=== PATIENT | female | born 2000 | race Caucasian/White ===

== ENCOUNTER → 2019-08-12 13:00 | Outpatient (BNVA) | payer MEDICAID, SELFPAY | PROVIDERS: Family Provider Nurse Practitioner Family; PCP Nurse Practitioner Family; Referring Provider Obstetrics & Gynecology; Visit Provider Obstetrics & Gynecology | DX: Z32.01 Encounter for pregnancy test, result positive (principal) | CPT/HCPCS: 81025 ==

== ENCOUNTER → 2019-08-18 13:30 | Outpatient (BNVA) | payer MEDICAID, SELFPAY | PROVIDERS: Family Provider Nurse Practitioner Family; PCP Nurse Practitioner Family; Visit Provider Nurse Practitioner Women's Health | DX: O09.891 Supervision of other high risk pregnancies, first trimester (principal); O99.331 Smoking (tobacco) complicating pregnancy, first trimester | CPT/HCPCS: 81000 ==

== ENCOUNTER → 2021-05-09 11:53 | Outpatient (BNVA) | payer MEDICAID, SELFPAY | PROVIDERS: Family Provider Nurse Practitioner Family; PCP Nurse Practitioner Family; Visit Provider Nurse Practitioner Family | DX: S69.90XA Unspecified injury of unspecified wrist, hand and finger(s), initial encounter (principal); S62.308A Unspecified fracture of other metacarpal bone, initial encounter for closed fracture; S62.316A Displaced fracture of base of fifth metacarpal bone, right hand, initial encounter for closed fracture; X58.XXXA Exposure to other specified factors, initial encounter | CPT/HCPCS: 73130 ==

== ENCOUNTER 2021-06-13 05:32 | Emergency (ER) | payer MEDICAID, SELFPAY ==
[2021-06-13 05:35] VITALS: BP 108/64; PULSE 85; RESP 20; TEMP 37.2; O2SAT 100; BMI 19.5
[2021-06-13 06:00] LABS: Basophils # 0.1 10^3/uL (0.0-0.1); Basophils % 0.4 %; Eosinophils % 0.2 %; Hematocrit 38.8 % (37.0-47.0); Hemoglobin 13.1 g/dL (11.5-15.3); Lymphocytes # 1.5 10^3/uL (0.8-4.8); Lymphocytes % 12.5 %; Mean Corpuscular HGB Conc 33.8 g/dL (30.0-36.0); Mean Corpuscular Hemoglobin 29.4 pg (28.0-34.0); Mean Corpuscular Volume 87.2 fl (81-99); Mean Platelet Volume 9.7 fL (7.4-10.4); Monocytes # 0.3 10^3/uL (0.2-0.9); Monocytes % 2.5 %; Neutrophils # 10.03 10^3/uL (1.8-7.7); Nucleated Red Blood Cells % 0 %; Platelet Count 412 10^3/cmm (130-400); Red Blood Count 4.45 10^6/uL (4.1-5.3); Red Cell Distribution Width 13.6 % (12.1-15.1); White Blood Count 11.9 10^3/uL (4.0-10.0)
--- NOTE | 2021-06-13 06:04 | XRR_ITS ---
PROCEDURE INFORMATION: Exam: XR Chest Exam date and time: 06/13/2021 6:04 AM Age: 21 years old Clinical indication: Dyspnea; Patient HX: SOB today; Additional info: Dyspnea/cough TECHNIQUE: Imaging protocol: XR of the chest. Views: 1 view. COMPARISON: No relevant prior studies available. FINDINGS: Lungs: No consolidation. Pleural spaces: Unremarkable. No pleural effusion. No pneumothorax. Heart/Mediastinum: No cardiomegaly. Bones/joints: No acute fracture. XR/XR chest 1V portable [id number] IMPRESSION: No acute findings. Radiation Dose CTDIVOL = (mGy): DLP = (mGy-cm)
--- NOTE | 2021-06-13 06:09 | ED_ITS ---
HPI - Abdominal Pain General: Chief Complaint: Abdominal Pain Stated Complaint: ABD PAIN Time Seen by Provider: 06/13/21 05:46 History of Present Illness: HPI narrative: 21-year-old female presents emergency room with complaint of abdominal pain nausea and vomiting. She states she has had this for last 3 days she was seen in [facility] exacerbated with the weight and left. She brought in today by EMS she is moaning loudly complaining of nonspecific abdominal pain does not refer to any particular area states is been going on for 3 days she denies hematochezia melena hematemesis coffee-ground emesis she denies any dysuria urgency or frequency or hematuria. She denies possibility of being she states she has not had previously had any kidney stones no previous abdominal surgeries appendix and gallbladder still intact. No shortness of breath no fever sweats or chills. Patient does admit to using marijuana multiple times a day for the last several years to help control nausea and abdominal pain. MD elicited complaint: abdominal pain Onset (ago): day(s) Pain Consistency: constant Location: Diffuse Severity: severe Quality: cramping Radiation: none Migration to: no migration Exacerbating factors: nothing Relieving factors: nothing Associated Symptoms: Reports anorexia, bloating, GI cramping, nausea, poor appetite and vomiting; Denies belching, change in bowel habits, change in stool character, chills, coffee ground emesis, constipation, diarrhea, dyspepsia, dysuria, excessive flatus, fever(s), heartburn, hematochezia, hematuria, hematemesis, fecal incontinence, loose stools, melena and syncope Related Data: Date of Last Menstrual Period: 06/06/21 Review of Systems Const: Denies: fever(s) or chills ENMT: Denies: throat pain, ear or mastoid pain, nasal discharge or nasal congestion Card: Denies: syncope Resp: Denies: dyspnea, productive cough or non-productive cough GI: Reports: nausea, vomiting, bloating and GI cramping; Denies: hematemesis, coffee ground emesis, heartburn, diarrhea, constipation, belching, excessive flatus, fecal incontinence, change in bowel habits, change in stool character, hematochezia or melena : Denies: dysuria or hematuria Skin/Breast: Denies: rash or pruritus PFSH ED PFSH: Medical History (Updated 06/13/21 @ 09:35 by Stevie Garrett DO) Patient denies medical problems Patient denies history of PE/DVT/clotting disorders, asthma, lung, liver heart, thyroid, kidney disease, hypertension or diabetes. PCP: [facility]ME[facility] Linda Surgical History History of tonsillectomy 2004 Family History Grandfather Hyperlipidemia Paternal Stroke Maternal great grandfather Grandmother Thyroid condition Maternal Unknown Patient denies medical problems Denies family history of: Hypertension, Diabetes, Heart Disease, Stroke, Breast Cancer, Ovarian Cancer, Uterine Cancer, Colon Cancer Social History (Updated 06/13/21 @ 06:13 by Stevie Garrett DO) Smoking and tobacco status: current every day smoker cigarettes Packs smoked per day: 0.5 [ Other cigarette details: Has smoked up to 1 pack daily since age 12 ] Smoking risk assessment/counseling performed?: Yes Alcohol intake: never Substance/Drug Use: current Desire information about substance/drug rehabilitation?: No Counseling given: Yes Last substance use date: 06/13/21 Other details last substance use: Daily use of marijuana for several years Female Reproductive History: Date of last menstrual period: 06/06/21 Physical Exam Const: COMMON NORMALS: no acute distress GENERAL APPEARANCE: cooperative and comfortable ORIENTATION/CONSCIOUSNESS: Yes awake, Yes oriented to person, Yes oriented to place and Yes oriented to time HENMT: COMMON NORMALS: normocephalic, atraumatic and hearing grossly normal bilaterally HEAD & SCALP: normocephalic and atraumatic Neck/C-Spine: COMMON NORMALS: no JVD Resp: COMMON NORMALS: normal respiratory effort, No retractions, No use of accessory muscles and clear to auscultation bilaterally AUSCULTATION: clear to auscultation bilaterally Cardio: COMMON NORMALS: no JVD, regular rate, regular rhythm and No murmurs present (Cardio) RATE: regular rate RHYTHM: regular rhythm GI: COMMON NORMALS: No hepatosplenomegaly present AUSCULTATION: Yes normoactive bowel sounds PALPATION: Yes Tenderness to palpation present (GI) (Diffuse nonspecific), No Guarding due to palpation present (GI) and Yes No hepatosplenomegaly present Extremity: COMMON NORMALS: normal to inspection, capillary refill normal, no clubbing, cyanosis or edema, no calf tenderness and no pedal edema Neuro: SENSORIUM/ORIENTATION: Yes oriented to person, Yes oriented to place and Yes oriented to time Skin: COMMON NORMALS: no rashes or lesions noted GENERAL SKIN EXAM: no rashes or lesions noted Course Vital Signs: Vital signs: Vital Signs Temperature 98.9 F 06/13/21 05:35 Pulse Rate 93 06/13/21 08:15 Respiratory Rate 18 06/13/21 08:15 Blood Pressure 97/50 06/13/21 08:15 Pulse Oximetry 100 06/13/21 08:15 MDM - Abdominal Pain MDM Narrative: Medical decision making narrative: Symptoms resolved. Discussed with the patient labs and imaging. Recommend abstinence from marijuana is likely exacerbating this can use promethazine. Follow-up as needed. Lab Data: Labs: Lab Results 06/13/21 06/13/21 06/13/21 05:44 05:48 05:48 WBC 11.9 10^3/uL H 10 ^3/uL (4.0-10.0) RBC 4.45 10^6/uL 10^6 /uL (4.1-5.3) Hgb 13.1 g/dL g/dL (11.5-15.3) Hct 38.8 % % (37.0-47.0) MCV 87.2 fl fl (81-99) MCH 29.4 pg pg (28.0-34.0) MCHC 33.8 g/dL g/dL (30.0-36.0) RDW 13.6 % % (12.1-15.1) Plt Count 412 10^3/cmm H 10 ^3/cmm (130-400) MPV 9.7 fL fL (7.4-10.4) Neut % (Auto) 84.0 % % Lymph % (Auto) 12.5 % % Ripley % (Auto) 2.5 % % Eos % (Auto) 0.2 % % Baso % (Auto) 0.4 % % Neut # (Auto) 10.03 10^3/uL H 1 0^3/uL (1.8-7.7) Lymph # (Auto) 1.5 10^3/uL 10^3/ uL (0.8-4.8) Ripley # (Auto) 0.3 10^3/uL 10^3/ uL (0.2-0.9) Eos # (Auto) 0.0 10^3/uL 10^3/ uL (0.0-0.8) Baso # (Auto) 0.1 10^3/uL 10^3/ uL (0.0-0.1) Nucleated RBC % (a uto) 0 % % Nucleated RBCs # 0.0 /100WBC /100W BC Sodium 138 mmol/L mmol/L (136-145) Potassium 3.3 mmol/L L mmol /L (3.5-5.1) Chloride 103 mmol/L mmol/L (98-107) Carbon Dioxide 19 mmol/L L mmol/ L (22-29) Anion Gap 19.3 H (5-19) BUN 9 mg/dL mg/dL (6-20) Creatinine 0.7 mg/dL mg/dL (0.5-0.9) GFR Calculation 104.6 mL/min mL/m in (90-130) Glucose 110 mg/dL mg/dL (65-115) Calculated Osmolal ity 285 mOsm/kg mOsm/ kg (285-295) Calcium 9.4 mg/dL mg/dL (8.5-10.5) Total Bilirubin 1.0 mg/dL mg/dL (0.15-1.2) AST 19 U/L U/L (0-32) ALT 18 U/L U/L (0-33) Alkaline Phosphata se 81 IU/L IU/L (35-105) Creatine Kinase 63 U/L U/L (26-192) Total Protein 7.4 g/dL g/dL (6.6-8.7) Albumin 4.3 g/dL g/dL (3.5-5.2) Globulin 3.1 g/dL g/dL (1.3-4.6) Lipase 33 U/L U/L (13-60) HCG, Qual Urine Color Urine Appearance Urine pH Ur Specific Gravit y Urine Protein Urine Glucose (UA) Urine Ketones Urine Blood Urine Nitrate Urine Bilirubin Prot Sulfosalicyli c Acd Urine Urobilinogen Ur Leukocyte Gertrude ase Urine RBC Urine WBC Ur Squamous Epith Cells Amorphous Sediment Urine Bacteria 06/13/21 06/13/21 05:48 08:44 WBC RBC Hgb Hct MCV MCH MCHC RDW Plt Count MPV Neut % (Auto) Lymph % (Auto) Ripley % (Auto) Eos % (Auto) Baso % (Auto) Neut # (Auto) Lymph # (Auto) Ripley # (Auto) Eos # (Auto) Baso # (Auto) Nucleated RBC % (a uto) Nucleated RBCs # Sodium Potassium Chloride Carbon Dioxide Anion Gap BUN Creatinine GFR Calculation Glucose Calculated Osmolal ity Calcium Total Bilirubin AST ALT Alkaline Phosphata se Creatine Kinase Total Protein Albumin Globulin Lipase HCG, Qual Negative (Negative) Urine Color Yellow (Yellow) Urine Appearance Cloudy (CLEAR) Urine pH 9 H (5-7) Ur Specific Gravit y 1.015 (1.005-1.030) Urine Protein Neg (Negative) Urine Glucose (UA) Norm (Normal) Urine Ketones 1+ H (Negative) Urine Blood Neg (Negative) Urine Nitrate Negative (Negative) Urine Bilirubin Neg (Negative) Prot Sulfosalicyli c Acd Negative (Negative) Urine Urobilinogen Norm mg/dL mg/dL (Negative) Ur Leukocyte Gertrude ase Negative (Negative) Urine RBC None /hpf /hpf (0-2) Urine WBC None /hpf /hpf (0-5) Ur Squamous Epith Cells 0-4 /hpf H /hpf (0-5) Amorphous Sediment 2+ /hpf /hpf Urine Bacteria Trace /hpf /hpf (NONE) Discharge Plan Discharge Patient Disposition: Home Clinical Impression: Cannabinoid hyperemesis syndrome Condition: Stable Prescriptions: New promethazine 25 mg tablet 25 mg PO Q6H PRN (Reason: nausea and vomiting) Qty: 20 RF: 0 No Action tramadol 50 mg tablet 50 mg PO Q6H PRN (Reason: pain) Qty: 20 RF: 0 Discharge Orders: Discharge ED (Routine); Ordered 06/13/21 Ordered By: Stevie Garrett Discharge Diet: Clear Liquid Discharge Activity: Resume usual activity Patient Instructions: Opioid Safety Activity Restrictions/Additional Instructions: Recommend tapering use of marijuana and eventually stopping completely. The regular use of marijuana contributes to hyperemesis cannabinoid syndrome. Warm showers and capsaicin cream in the abdomen can also be helpful. Coding Level of Care Code ED Environmental Health Sanitarian for Erosg Fwd Exam Comprehensive
[2021-06-13] MEDS: LORazepam 2 mg/mL INJ 1 mL IVP (06:16)
[2021-06-13] MEDS: haloperidol inj 5 mg/mL INJ 1 mL 2.5 MG IVP (06:16)
[2021-06-13 06:17] LABS: HCG, Serum Qual Negative (Negative)
[2021-06-13 06:20] LABS: Alanine Aminotransferase 18 U/L (0-33); Albumin Level 4.3 g/dL (3.5-5.2); Alkaline Phosphatase 81 IU/L (35-105); Anion Gap 19.3 (5-19); Aspartate Amino Transferase 19 U/L (0-32); Blood Urea Nitrogen 9 mg/dL (6-20); Calcium 9.4 mg/dL (8.5-10.5); Carbon Dioxide 19 mmol/L (22-29); Chloride 103 mmol/L (98-107); Globulin 3.1 g/dL (1.3-4.6); Glomerular Filtration Rate 104.6 mL/min (90-130); Glucose 110 mg/dL (65-115); Lipase 33 U/L (13-60); Osmolality Calculated 285 mOsm/kg (285-295); Potassium 3.3 mmol/L (3.5-5.1); Sodium 138 mmol/L (136-145); Total Protein 7.4 g/dL (6.6-8.7)
[2021-06-13] MEDS: sodium chloride 0.9% 1,000 ML 999 ML IV ×2 (06:23→07:38)
--- NOTE | 2021-06-13 06:29 | CTR_ITS ---
PROCEDURE INFORMATION: Exam: CT Abdomen And Pelvis With Contrast Exam date and time: 06/13/2021 6:29 AM Age: 21 years old Clinical indication: Abdominal pain; Additional info: Abd pain TECHNIQUE: Imaging protocol: Computed tomography of the abdomen and pelvis with contrast. Radiation optimization: All CT scans at this facility use at least one of these dose optimization techniques: automated exposure control; mA and/or kV adjustment per patient size (includes targeted exams where dose is matched to clinical indication); or iterative reconstruction. Contrast material: VISI; Contrast volume: 75 ml; Contrast route: INTRAVENOUS (IV); COMPARISON: CR XR chest 1V portable [id number] 06/13/2021 6:24 AM RADIATION DOSE METRICS: Total DLP (mGy-cm): 701.78 FINDINGS: Liver: No mass. Gallbladder and bile ducts: No calcified stones. No ductal dilation. Pancreas: No ductal dilation. Spleen: No splenomegaly. Adrenal glands: Normal. No mass. Kidneys and ureters: No hydronephrosis. Stomach and bowel: Minimal scattered air-fluid levels in nondilated loops of bowel noted in the pelvis. Findings may be seen with ileus/enteritis. No high-grade bowel obstruction. Appendix: The appendix is not identified and therefore appendicitis cannot be excluded. However, there are no right lower quadrant or pericecal inflammatory changes. Intraperitoneal space: No free air. No significant fluid collection. Vasculature: No abdominal aortic aneurysm. Lymph nodes: No enlarged lymph nodes. Urinary bladder: Unremarkable as visualized. Reproductive: Intrauterine device noted. Bones/joints: Unremarkable. No acute fracture. Soft tissues: Unremarkable. CT/CT abdomen pelvis w con* [id number] IMPRESSION: 1. The appendix is not identified and therefore appendicitis cannot be excluded. However, there are no right lower quadrant or pericecal inflammatory changes. If there is high clinical suspicion for acute appendicitis correlation with oral contrast may be helpful. 2. Minimal scattered air-fluid levels in nondilated loops of bowel noted in the pelvis. Findings may be seen with ileus/enteritis. Radiation Dose CTDIVOL = (mGy): DLP = 701.78 (mGy-cm)
[2021-06-13 06:32] LABS: Creatine Phosphokinase 63 U/L (26-192)
[2021-06-13] MEDS: iodixanol 320 mg/mL 100mL Btl IV (06:47)
[2021-06-13 06:56] VITALS: BP 108/64; PULSE 60; RESP 23; O2SAT 98
[2021-06-13 08:15] VITALS: BP 97/50; PULSE 93; RESP 18; O2SAT 100
[2021-06-13] MEDS: potassium chloride oral liq 20 mEq/15 mL UDC 40 MEQ PO (09:42)
[2021-06-13 09:46] LABS: Add Urine Microscopic? YES; Bilirubin Urine Neg (Negative); Blood Urine Neg (Negative); Glucose Urine UA Norm (Normal); Ketones Urine 1+ (Negative); Leukocyte Esterase Urine Negative (Negative); Nitrate Urine Negative (Negative); Protein Urine Neg (Negative); Specific Gravity, Urine 1.015 (1.005-1.030); Urine Appearance Cloudy (CLEAR); Urine Color Yellow (Yellow); Urobilinogen Urine Norm (Negative); pH Urine 9 (5-7)
[2021-06-13 09:49] LABS: Bacteria Urine TRACE /hpf; Squamous Epithelial Cell Urine 0-4 /hpf (0-5); Sulfosalicylic Acid Urine Negative (Negative)
[2021-06-13 09:50] LABS: Add Urine Culture? No; Amorphous Sediment Urine 2+ /hpf
== END 2021-06-13 11:14 | disposition home or self-care (01) ==
PROVIDERS: Emergency Medicine; Emergency Provider Family Medicine
DX: R11.2 Nausea with vomiting, unspecified (principal); F12.920 Cannabis use, unspecified with intoxication, uncomplicated; F17.210 Nicotine dependence, cigarettes, uncomplicated
CPT/HCPCS: 71045; 74177; 80053; 81001; 82550; 83690; 84703; 85025; 96361; 96374; 96375; 99284; J1630; J2060; J7030; Q9967

== ENCOUNTER → 2022-04-26 13:10 | Outpatient (BNVA) | payer MEDICAID, SELFPAY | PROVIDERS: Visit Provider Nurse Practitioner Family | DX: M54.50 Low back pain, unspecified (principal); R53.83 Other fatigue | CPT/HCPCS: 72100; 80053; 84443; 85025 ==

== ENCOUNTER → 2022-06-27 09:56 | Outpatient (BNVA) | payer MEDICAID, SELFPAY | PROVIDERS: Visit Provider Emergency Medicine | DX: R68.89 Other general symptoms and signs (principal); J10.1 Influenza due to other identified influenza virus with other respiratory manifestations | CPT/HCPCS: 87400 ==

== ENCOUNTER → 2022-10-22 16:11 | Outpatient (BNVA) | payer MEDICAID, SELFPAY | PROVIDERS: Visit Provider Nurse Practitioner Family | DX: M25.511 Pain in right shoulder (principal) | CPT/HCPCS: 73030 ==

== ENCOUNTER → 2023-07-17 15:26 | Outpatient (BNVA) | payer MEDICAID, SELFPAY | PROVIDERS: Visit Provider Emergency Medicine | DX: B34.9 Viral infection, unspecified (principal) | CPT/HCPCS: 87400; 87426 ==

== ENCOUNTER → 2023-09-25 13:01 | Outpatient (BNVA) | payer MEDICAID, SELFPAY | PROVIDERS: Visit Provider Nurse Practitioner Family | DX: M79.645 Pain in left finger(s) (principal) | CPT/HCPCS: 73130 ==

== ENCOUNTER → 2023-11-26 11:36 | Outpatient (BNVA) | payer MEDICAID, SELFPAY | PROVIDERS: Visit Provider Nurse Practitioner | DX: R10.9 Unspecified abdominal pain (principal) | CPT/HCPCS: 80053; 85025; 86003; 86008 ==

== ENCOUNTER 2023-12-04 07:19 | Outpatient (CLI) | payer MEDICAID, SELFPAY ==
--- NOTE | 2023-12-04 07:45 | US_ITS ---
WS: [id number] Complete ABDOMINAL ULTRASOUND HISTORY: K29.70 - Gastritis, unspecified, without bleeding COMPARISON: None available. Liver: 21.6 cm in length. Elongated RIGHT lobe of the liver consistent with a Doe's lobe which is a normal variant. This was also noted on the CT from 06/13/2021. Portal Vein: Normal hepatopetal flow with monophasic waveform. Gallbladder: Well-distended gallbladder. Nonshadowing 4 mm focus in the gallbladder consistent with a polyp. No change in position of this focus during change of patient position. CBD: 0.3 cm Pancreas: Normal size and echogenicity. Right kidney: 11.4 cm x 3.4 x 5.1 cm. Cortex:0.7 cm. Normal size and echogenicity. No hydronephrosis or mass. Left kidney: 12.3 cm x 4.8 cm x 4.7 cm. Cortex: 0.9 cm. Normal size and echogenicity. No hydronephrosis or mass. Spleen: 11.0 cm. Normal size and echogenicity. Aorta and IVC: Unremarkable abdominal aorta and IVC. US/US abdomen complete* [id number] Impression: 1. No cholelithiasis. Small gallbladder polyp. 2. Normal variant Doe's lobe. Normal size liver. 3. No hydronephrosis. Normal kidneys.
== END 2023-12-04 07:20 | disposition home or self-care (01) ==
LOC: RAD 07:20
PROVIDERS: Visit Provider Nurse Practitioner
DX: K29.70 Gastritis, unspecified, without bleeding (principal); K82.4 Cholesterolosis of gallbladder
CPT/HCPCS: 76700

== ENCOUNTER 2023-12-25 10:48 | Day surgery (SDC) | payer MEDICAID, SELFPAY ==
[2023-12-25 11:52] VITALS: BP 99/61; PULSE 64; RESP 16; TEMP 36.2; O2SAT 98; BMI 20.3
[2023-12-25 11:57] LABS: OR HCG Qualitative Urine Negative (Negative)
[2023-12-25] MEDS: sodium chloride 0.9% 1,000 ML 30 ML IV (12:03)
--- NOTE | 2023-12-25 12:06 | ANES.PREANE2 ---
Pre-Anesthetic Assessment Height/Weight: Height 1.6 m Weight 52.163 kg Temp Pulse Resp BP Pulse Ox O2 Del Method 97.2 F L 64 16 99/61 98 Room Air 12/25/23 11:52 12/25/23 11:52 12/25/23 11:52 12/25/23 11:52 12/25/23 11:52 12/25/23 11:52 Operation Date: 12/25/23 12:45 Proposed Procedures p EGD [id number], R10.13(Not Applicable) - Omar Swenson DO Familial anesthetic complications: none Was Beta Umer taken within 24 hours: N/A Was Clonidine taken within 24 hours: N/A Last intake: Intake Last Liquid Date 12/25/23 Last Liquid Time 00:00 Last Solid Date 12/24/23 Last Solid Time 21:00 Social Tobacco and No alcohol Exam alert, oriented x 3, clear to auscultation bilaterally and regular rate & rhythm Airway Mallampati: Class I Dentition: false GI Gastroesophageal Reflux Disease Anesthetic Plan ASA status: 2 Anesthesia: MAC Risk of > 500 ml blood loss (7ml/kg in children): No Medications/Allergies Home Medications Medication Instructions Recorded Confirmed Last Taken Type pantoprazole 40 mg tablet,delayed 40 mg PO BID 6 weeks #84 tabs 12/12/23 12/25/23 12/23/23 Rx release (Protonix) Allergies Allergy/AdvReac Type Severity Reaction Status Date / Time No Known Allergies Allergy Verified 12/25/23 11:50 Current Medications Generic Name Dose Route Start Last Admin Trade Name Freq PRN Reason Stop Dose Admin Sodium Chloride 1,000 mls @ 30 mls/hr 12/25/23 11:45 12/25/23 12:03 Sodium Chloride 0.9% IV 12/26/23 11:44 30 mls/hr .Q24H EFRAIN Administration PFS Anesthesia Medical History (Updated 12/12/23 @ 10:29 by Omar Swenson DO) Patient denies medical problems Patient denies history of PE/DVT/clotting disorders, asthma, lung, liver heart, thyroid, kidney disease, hypertension or diabetes. PCP: YASME[facility] Linda Surgical History History of tonsillectomy 2004 Family History Grandfather Hyperlipidemia Paternal Stroke Maternal great grandfather Grandmother Thyroid disease Maternal Unknown Patient denies medical problems Denies family history of: Hypertension, Diabetes, Heart Disease, Stroke, Breast Cancer, Ovarian Cancer, Uterine Cancer, Colon Cancer Social History Smoking and tobacco/nicotine status: current every day tobacco/nicotine user cigarettes Packs smoked per day: 0.5 [ Other cigarette details: Has smoked up to 1 pack daily since age 12] Alcohol intake: never Substance/Drug Use: current Female Reproductive History Date of last menstrual period: 12/03/23 Spontaneous abortions: No Data Anesthesia Cardiac Studies: No Data to Display
--- NOTE | 2023-12-25 12:59 | W.PM.OPSUD ---
Surgery/Procedure H&P Update DATE OF PROCEDURE: December 25, 2023 DATE H&P PERFORMED: 12/12/23 H&P UPDATE INFORMATION: I have reviewed H&P completed within last 30 days, I have examined patient prior to procedure and No changes to prior documentation PLANNED PROCEDURE: Operation Date: 12/25/23 12:45 Proposed Procedures p EGD [id number], R10.13(Not Applicable) - Omar Swenson, DO
[2023-12-25 13:14] VITALS: BP 89/45; PULSE 64; RESP 14; TEMP 36.5; O2SAT 97
[2023-12-25 13:32] VITALS: BP 91/55; PULSE 61; RESP 16; O2SAT 100
--- NOTE | 2023-12-25 13:56 | PC.NURSE ---
B/P 88/52 MAP 57. PER ANESTHESIA CONTINUE TO MONITOR VS WITH IV FLUIDS INFUSING UNTIL B/P CLOSER TO PRE-OP BASELINE
--- NOTE | 2023-12-25 13:59 | ANE.PACU2 ---
Inpatient post-anesthesia follow up: Airway intact: Yes Vital signs: Temperature 97.7 F Pulse Rate 61 Respiratory Rate 16 Blood Pressure 91/55 Pulse Oximetry 100 Oxygen Delivery Me thod Room Air Oxygen Flow Rate 2 Fraction of Inspir ed Oxygen Hydration adequate: Yes Nausea and vomiting: No Pain level: 1 Mental status: Baseline
[2023-12-25 14:10] VITALS: BP 102/59; PULSE 66; RESP 18; O2SAT 99
== END 2023-12-25 14:29 | disposition home or self-care (01) ==
PROVIDERS: Visit Provider Surgery
PROC: 0DJ08ZZ Inspection of Upper Intestinal Tract, Via Natural or Artificial Opening Endoscopic (ICD-10-PCS; CPT 43235; principal; 2023-12-25 12:45)
DX: R10.13 Epigastric pain (principal); K21.9 Gastro-esophageal reflux disease without esophagitis; F17.210 Nicotine dependence, cigarettes, uncomplicated; K82.4 Cholesterolosis of gallbladder
CPT/HCPCS: 43239; 81025; 88305; J2704; J7030

== ENCOUNTER 2024-01-13 09:57 | Outpatient (CLI) | payer MEDICAID, SELFPAY ==
--- NOTE | 2024-01-13 10:00 | NM_ITS ---
WS: [id number] NUCLEAR MEDICINE HIDA SCAN WITH GALLBLADDER EJECTION FRACTION HISTORY: epigastric pain COMPARISON: Abdomen ultrasound 12/04/2023 TECHNIQUE: The patient was intravenously injected with 7.5 mCi of TC99m Mebrofenin. Immediate imaging over the right upper quadrant was followed by 5 minute image and additional images for a total of 60 minutes. Normal uptake of radiotracer throughout the liver. Activity identified in the gallbladder at 30 minutes and well distended by 60 minutes. Activity in the proximal small bowel was seen by 20 minutes. Good washout of the radiotracer from the liver by 60 minutes. The patient then drank 8 ounces of Ensure Plus. Ejection fraction at 60 minutes was 53%. Normal GB ej ection fraction is 35-75%. Post fatty meal symptoms: None. NM/NM hepatobiliary w phar* [id number] IMPRESSION: 1. Normal HIDA scan. 2. Normal gallbladder ejection fraction.
== END 2024-01-13 09:58 | disposition home or self-care (01) ==
PROVIDERS: PCP Nurse Practitioner; Visit Provider Surgery
DX: R10.13 Epigastric pain (principal)
CPT/HCPCS: 78227; A9537

== ENCOUNTER 2024-01-28 11:47 | Day surgery (SDC) | payer MEDICAID, SELFPAY ==
[2024-01-28] VITALS (16 sets, daily range): BP systolic 99–145; BP diastolic 68–119; PULSE 50–102; RESP 10–24; TEMP 36.4–36.8; O2SAT 94–100
[2024-01-28] MEDS: sodium chloride 0.9% 1,000 ML 30 ML IV (12:11)
--- NOTE | 2024-01-28 12:17 | P.ANESASSM_ITS ---
Pre-Anesthetic Assessment Height/Weight: Height 1.6 m Weight 51.256 kg Operation Date: 01/28/24 13:10 Proposed Procedures p Laparoscopic Cholecystectomy [id number], K80.50, K82.4(Not Applicable) - Omar Swenson DO Familial anesthetic complications: None Was Beta Umer taken within 24 hours: N/A Was Clonidine taken within 24 hours: N/A Last intake: > 8 hrs Social Tobacco and No alcohol Exam alert, oriented x 3, clear to auscultation bilaterally and regular rate & rhythm Airway Mallampati: Class I Dentition: false GI Gastroesophageal Reflux Disease Anesthetic Plan ASA status: 1 Anesthesia: General Risk of > 500 ml blood loss (7ml/kg in children): No Medications/Allergies Home Medications Medication Instructions Recorded Confirmed Last Taken Type pantoprazole 40 mg tablet,delayed 40 mg PO BID PRN indigestion 01/27/24 01/27/24 Unknown History release (Protonix) Allergies Allergy/AdvReac Type Severity Reaction Status Date / Time No Known Allergies Allergy Verified 01/27/24 13:07 Current Medications Generic Name Dose Route Start Last Admin Trade Name Freq PRN Reason Stop Dose Admin Sodium Chloride 1,000 mls @ 30 mls/hr 01/28/24 12:00 01/28/24 12:11 Sodium Chloride 0.9% IV 01/29/24 11:59 30 mls/hr .Q24H EFRAIN Administration PFSH Anesthesia Medical History (Updated 01/13/24 @ 14:38 by Omar Swenson DO) Patient denies medical problems Patient denies history of PE/DVT/clotting disorders, asthma, lung, liver heart, thyroid, kidney disease, hypertension or diabetes. PCP: YASMEEN Linda Surgical History History of tonsillectomy 2004 Family History Grandfather Hyperlipidemia Paternal Stroke Maternal great grandfather Grandmother Thyroid disease Maternal Unknown Patient denies medical problems Denies family history of: Hypertension, Diabetes, Heart Disease, Stroke, Breast Cancer, Ovarian Cancer, Uterine Cancer, Colon Cancer Social History Smoking and tobacco/nicotine status: current every day tobacco/nicotine user ci garettes Packs smoked per day: 0.5 [ Other cigarette details: Has smoked up to 1 pack daily since age 12] Alcohol intake: never Substance/Drug Use: current Female Reproductive History Date of last menstrual period: 01/13/24 Spontaneous abortions: No Data Anesthesia Cardiac Studies: No Data to Display
[2024-01-28 12:23] LABS: OR HCG Qualitative Urine Negative (Negative)
--- NOTE | 2024-01-28 12:25 | W.PM.OPSUD ---
Surgery/Procedure H&P Update DATE OF PROCEDURE: January 28, 2024 DATE H&P PERFORMED: 01/13/24 H&P UPDATE INFORMATION: I have reviewed H&P completed within last 30 days, I have examined patient prior to procedure and No changes to prior documentation PLANNED PROCEDURE: Operation Date: 01/28/24 13:10 Proposed Procedures p Laparoscopic Cholecystectomy 93010, K80.50, K82.4(Not Applicable) - Omar Swenson, DO
[2024-01-28] MEDS: ceFAZolin 2,000 MG in sodium chloride 0.9% (plus) 50 ML 100 MG IV (12:58)
[2024-01-28] MEDS: lidocaine-epi 1% 20 mL INJ 10 ML INJECTION (13:25)
--- NOTE | 2024-01-28 13:32 | P.OP_ITS ---
Operative Report Date of procedure: January 28, 2024 Surgeon: Omar Swenson DO Brief History: This is a very pleasant 23-year-old female who presented my office with abdominal pain. After a complete workup she was diagnosed with biliary colic. Laparoscopic cholecystectomy was indicated. The risks and benefits, especially fact that there is a 20 to 30% chance that cholecystectomy does not relieve all of her symptoms, or explained to the patient. She is understand the risks and wished to proceed. Procedure: Preoperative diagnosis: Biliary colic Postoperative diagnosis: Same Procedure performed: Laparoscopic cholecystectomy Surgeon: Dr. Omar Swenson DO Estimated blood loss: 5 mL Specimens: Gallbladder to pathology Complications: None apparent Description of procedure: Patient was wheeled into the operative room and placed on the OR table in a supine position. Abdomen was inspected prepped and draped in usual sterile fashion. Time-out was performed and all present were in agreement. A 15 blade scalp was used to make a stab incision in the left upper quadrant and intra- abdominal insufflation was achieved using a Veress needle. After localizing the tissue incisions were made and a 5 millimeter trocar was placed into the umbilicus as well as 2 in the right upper quadrant. A 12 millimeter trocar was placed in the epigastrium. Gallbladder was grasped and elevated. The triangle of Calot was carefully dissected using blunt dissection and electrocautery until the triangle of Calot clearly identified. The cystic duct was clipped proximally and double clipped distally. The duct was then ligated proximally. The cystic artery was doubly clipped and ligated. The gallbladder was then removed from the liver bed using electrocautery. The gallbladder was removed from the abdomen using an Endo-Catch bag through the epigastric incision. The liver bed was inspected and no bleeding was seen. The abdomen was irrigated and suctioned. All ports removed. Skin was washed and dried. Incisions were closed with 4-0 Monocryl in a subcuticular interrupted fashion. Skin glue was applied. Patient tolerated the procedure well.
[2024-01-28] MEDS: ondansetron 2 mg/ML SDV 2 mL 4 MG IVP ×2 (14:04→14:12)
[2024-01-28] MEDS: fentaNYL 50 mcg/mL INJ 2mL IVP (14:19)
[2024-01-28] MEDS: metoclopramide 5 mg/mL SDV 2 mL 10 MG IVP (14:37)
[2024-01-28] MEDS: scopolamine 1.5 Patch 1 PATCH TRANSDERMA (15:01)
[2024-01-28] MEDS: TRAMadol 50 mg Tablet PO (15:05)
[2024-01-28] MEDS: ketorolac 30 mg/mL INJ 15 MG IVP (15:38)
--- NOTE | 2024-01-28 16:20 | ANE.PACU2 ---
Inpatient post-anesthesia follow up: Airway intact: Yes Vital signs: Temperature 97.5 F Pulse Rate 55 Respiratory Rate 18 Blood Pressure 138/80 Pulse Oximetry 98 Oxygen Delivery Me thod Room Air Oxygen Flow Rate 6 Fraction of Inspir ed Oxygen Hydration adequate: Yes Nausea and vomiting: No Pain level: 1 Mental status: Baseline
== END 2024-01-28 16:20 | disposition home or self-care (01) ==
PROVIDERS: Anesthesiology; PCP Nurse Practitioner; Visit Provider Surgery
PROC: 0FT44ZZ Resection of Gallbladder, Percutaneous Endoscopic Approach (ICD-10-PCS; CPT 47562; principal; 2024-01-28 13:10)
DX: K81.1 Chronic cholecystitis (principal); K21.9 Gastro-esophageal reflux disease without esophagitis; F17.210 Nicotine dependence, cigarettes, uncomplicated
CPT/HCPCS: 47562; 81025; 88304; J0690; J1100; J1885; J2250; J2405; J2704; J2765; J3010; J3490; J7030

== ENCOUNTER 2024-07-07 06:35 | Day surgery (SDC) | payer MEDICAID, SELFPAY ==
[2024-07-07] VITALS (15 sets, daily range): BP systolic 89–120; BP diastolic 52–83; PULSE 64–86; RESP 12–18; TEMP 36.2–36.7; O2SAT 94–100; BMI 19.8
[2024-07-07 07:00] LABS: OR HCG Qualitative Urine Negative (Negative)
--- NOTE | 2024-07-07 07:04 | W.PM.OPSUD ---
Surgery/Procedure H&P Update DATE OF PROCEDURE: July 07, 2024 DATE H&P PERFORMED: 06/18/24 H&P UPDATE INFORMATION: I have reviewed H&P completed within last 30 days, I have examined patient prior to procedure and No changes to prior documentation PLANNED PROCEDURE: Operation Date: 07/07/24 08:25 Proposed Procedures p Laparoscopic Incisional Hernia Repair with mesh 71252, K43.2(Not Applicable) - Omar Swenson, DO
[2024-07-07] MEDS: sodium chloride 0.9% 1,000 ML 30 ML IV (07:15)
--- NOTE | 2024-07-07 07:53 | ANES.PREANE2 ---
Pre-Anesthetic Assessment Height/Weight: Height 5 ft 3 in Weight 112 lb Temp Pulse Resp BP Pulse Ox O2 Del Method 97.9 F 75 16 103/61 97 Room Air 07/07/24 06:52 07/07/24 06:52 07/07/24 06:52 07/07/24 06:52 07/07/24 06:52 07/07/24 06:54 Preop Diagnosis: Hernia Operation Date: 07/07/24 08:25 Proposed Procedures p Laparoscopic Incisional Hernia Repair with mesh 75212, K43.2(Not Applicable) - Omar Swenson DO Was Beta Umer taken within 24 hours: N/A Was Clonidine taken within 24 hours: N/A Last intake: Intake Last Liquid Date 07/06/24 Last Liquid Time 23:00 Last Solid Date 07/06/24 Last Solid Time 21:00 Social Tobacco and No alcohol Exam alert, oriented x 3, clear to auscultation bilaterally and regular rate & rhythm Airway Submandibular: within normal limits Cervical ROM: within normal limits Mallampati: Class I Dentition: false Comments: Comments: Upper and lower dentures Anesthetic Plan ASA status: 2 Anesthesia: General Other: No prior issues with anesthesia NPO since yesterday History of smoking, nicotine and marijuana Denies any cardiac issues METs greater than 4 Plan for general anesthesia Medications/Allergies Allergies Allergy/AdvReac Type Severity Reaction Status Date / Time No Known Allergies Allergy Verified 07/07/24 06:48 [facility] Anesthesia Medical History (Updated 06/18/24 @ 09:42 by Omar Swenson DO) Patient denies medical problems Patient denies history of PE/DVT/clotting disorders, asthma, lung, liver heart, thyroid, kidney disease, hypertension or diabetes. PCP: YASMEEN Linda Surgical History (Updated 06/18/24 @ 09:42 by Omar Swenson DO) History of laparoscopic cholecystectomy History of tonsillectomy 2004 Family History Grandfather Hyperlipidemia Paternal Stroke Maternal great grandfather Grandmother Thyroid disease Maternal Unknown Patient denies medical problems Denies family history of: Hypertension, Diabetes, Heart Disease, Stroke, Breast Cancer, Ovarian Cancer, Uterine Cancer, Colon Cancer Social History Smoking and tobacco/nicotine status: current every day tobacco/nicotine user cigarettes Packs smoked per day: 0.5 [ Other cigarette details: Has smoked up to 1 pack daily since age 12] Alcohol intake: never Substance/Drug Use: current Female Reproductive History Spontaneous abortions: No Data Anesthesia Cardiac Studies: No Data to Display
[2024-07-07] MEDS: ceFAZolin 2,000 mg SDV 2000 MG IVP (08:42)
[2024-07-07] MEDS: lidocaine-epi 2% PF 1:200,000 20 mL SDV XX (09:26)
--- NOTE | 2024-07-07 09:34 | PM.OP ---
Operative Report Date of procedure: July 07, 2024 Pre-op diagnosis: Incisional hernia Post-op diagnosis: same Procedure done: Laparoscopic repair of incisional hernia with mesh Implants: 11 cm round Ventralight mesh Specimens removed/disposition: None Surgeon: Omar Swenson DO Anesthesia: General and Local Estimated blood loss (mL): 5 Complications: None apparent Brief History: This is a very pleasant 24-year-old female who presents to my office with an incisional hernia in her epigastrium. She desired repair. Laparoscopic repair with mesh was indicated. The risks and benefits were explained and documented. Procedure: Patient was wheeled into the operative room and placed on the OR table in a supine position. Abdomen was inspected prepped and draped in usual sterile fashion. Time-out was performed and all present were in agreement. A 15 blade scalp was used to make a stab incision left upper quadrant. A Veress needle was placed into the incision and intra-abdominal insufflation was brought to 15 millimeters of mercury. After localization and incision, a 5 mm trocar was placed into the very lateral left upper quadrant using Optiview. A 12 millimeter trocar was placed into the left lower quadrant. The energy but device was then used to take down the falciform ligament and cut out the hernia sac. Hernia defect measuring 1.5 cm in diameter was identified and contained fat from the falciform ligament. An 11 cm round Ventralight mesh was placed into the abdomen and brought up through the center of the hernia using an the Blu-Cristobal. The mesh was then tacked in place in a double crown fashion. The skeleton of the mesh was removed via the left lower quadrant. The left lower quadrant port site was closed with an 0 Vicryl suture in a Blu-Cristobal in a [id number] fashion. Incisions were closed with 4 O Vicryl in a subcuticular interrupted fashion. Skin glue was applied. A dressing that included cotton balls and a Tegaderm was placed over the umbilicus. Patient tolerated the procedure well.
[2024-07-07] MEDS: HYDROmorphone 1 mg/mL INJ 1 mL IVP (10:04)
[2024-07-07] MEDS: ondansetron 2 mg/ML SDV 2 mL 4 MG IVP (11:41)
--- NOTE | 2024-07-07 12:10 | ANE.PACU2 ---
Inpatient post-anesthesia follow up: Airway intact: Yes Vital signs: Temperature 97.5 F Pulse Rate 84 Respiratory Rate 16 Blood Pressure 100/63 Pulse Oximetry 96 Oxygen Delivery Me thod Room Air Oxygen Flow Rate 6 Fraction of Inspir ed Oxygen Hydration adequate: Yes Nausea and vomiting: No Pain level: 1 Mental status: Baseline
== END 2024-07-07 12:10 | disposition home or self-care (01) ==
PROVIDERS: PCP Nurse Practitioner; Visit Provider Surgery
PROC: 0WQF4ZZ Repair Abdominal Wall, Percutaneous Endoscopic Approach (ICD-10-PCS; CPT 49591; principal; 2024-07-07 08:15)
DX: K43.2 Incisional hernia without obstruction or gangrene (principal); F17.210 Nicotine dependence, cigarettes, uncomplicated
CPT/HCPCS: 49591; 81025; C1781; J0690; J1100; J1171; J1885; J2250; J2405; J2704; J3010; J3490; J7030

== ENCOUNTER → 2025-04-19 11:25 | Outpatient (BNVA) | payer SELFPAY | PROVIDERS: PCP Nurse Practitioner; Visit Provider Nurse Practitioner | DX: Z12.4 Encounter for screening for malignant neoplasm of cervix (principal) | CPT/HCPCS: 87624 ==